=== PATIENT | female | born 2005 | race Hispanic/Latino ===

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

== ENCOUNTER → 2023-03-31 | Outpatient (CLI) | payer BC, MEDICAID ==
[~2023-03-31] MED LIST: METR-172 PO
== END | disposition home or self-care (01) ==
LOC: RAH 08:27
PROVIDERS: ATTEND Internal Medicine
DX: K80.20 Calculus of gallbladder without cholecystitis without obstruction (principal); R11.10 Vomiting, unspecified; R68.83 Chills (without fever)
CPT/HCPCS: 76700